=== PATIENT | female | born 1995 | race Caucasian/White ===

== ENCOUNTER 2020-06-20 16:52 | Emergency (ER) | payer SELFPAY ==
[~2020-06-20] VITALS: Ht 162.6 cm; Wt 73.6 kg
[2020-06-20 17:05] VITALS: BP 138/76
[2020-06-20 18:25] LABS: BILIRUBIN,URINE NEGATIVE (NEG); CLARITY,URINE CLEAR; COLOR,URINE YELLOW; NITRITE,URINE NEGATIVE (NEG); PH,URINE 7.5 (<5.0-8.0); PROTEIN,URINE NEGATIVE (NEG-TRACE); UROBILINOGEN,URINE 0.2 mg/dL (0.2 mg/dL)
[2020-06-20 18:41] LABS: BACTERIA,URINE FEW /HPF (0-FEW); RBC,URINE OCC /HPF (0-2)
--- NOTE | 2020-06-20 18:52 | PHYS DOC ---
Past Medical History Past Medical History: Other Additional Past Medical Histor: celiac disease, hypogammaglobulinemia Past Surgical History: Cholecystectomy, Other Additional Past Surgical Histo: LT CTR Smoking Status: Never Smoker Alcohol Use: Occasionally General Adult EDM: Chief Complaint: BACK PAIN - NO INJURY HPI: HPI: Patient is a 25 year old female who presents with chronic lower mid back pain but is now worsened and now she is feeling tightness in her mid back to her lower back. She states it feels like a throbbing type sensation. She states nothing makes it worse or better. She is Tylenol is not helping. She does have peptic ulcer disease. Patient denies abdominal pain, nausea, vomiting, diarrhea, fever, urinary symptoms, chest pain, shortness of air, headache, dizziness, numbness or tingling, focal weakness, vision changes, injury, fall, lifting anything heavy. Patient has a history of celiac disease, hypogammaglobulin, peptic ulcer disease. Review of Systems: Review of Systems: Constitutional: Denies fever or chills. [] Eyes: Denies change in visual acuity. [] HENT: Denies nasal congestion or sore throat. [] Respiratory: Denies cough or shortness of breath. [] Cardiovascular: Denies chest pain or edema. [] GI: Denies abdominal pain, nausea, vomiting, bloody stools or diarrhea. [] : Denies dysuria. [] Musculoskeletal: + Thoracic and lumbar back pain or denies joint pain. [] Integument: Denies rash. [] Neurologic: Denies headache, focal weakness or sensory changes. [] Endocrine: Denies polyuria or polydipsia. [] Lymphatic: Denies swollen glands. [] Psychiatric: Denies depression or anxiety. [] Heart Score: C/O Chest Pain: No Risk Factors: Risk Factors: DM, Current or recent (<one month) smoker, HTN, HLP, family history of CAD, obesity. Risk Scores: Score 0 - 3: 2.5% MACE over next 6 weeks - Discharge Home Score 4 - 6: 20.3% MACE over next 6 weeks - Admit for Clinical Observation Score 7 - 10: 72.7% MACE over next 6 weeks - Early Invasive Strategies Allergies: Allergies: Allergies Coded Allergies Type Severity Reaction Last Updated Verified Sulfa (Sulfonamide Antibiotics) Allergy Severe facial swelling 06/20/20 Yes Influenza Virus Vaccines Allergy Intermediate hives 06/20/20 Yes gluten Allergy Intermediate rash, abdominal discomfort 06/20/20 Yes Physical Exam: PE: Constitutional: Well developed, well nourished, no acute distress, non-toxic appearance. [] HENT: Normocephalic, atraumatic, bilateral external ears normal, oropharynx moist, no oral exudates, nose normal. [] Eyes: PERRLA, EOMI, conjunctiva normal, no discharge. [] Neck: Normal range of motion, no tenderness, supple, no stridor. [] Cardiovascular:Heart rate regular rhythm, no murmur [] Lungs & Thorax: Bilateral breath sounds clear to auscultation [] Abdomen: Bowel sounds normal, soft, no tenderness, no masses, no pulsatile masses. [] Skin: Warm, dry, no erythema, no rash. [] Back: No tenderness, no CVA tenderness. [] Extremities: No tenderness, no cyanosis, no clubbing, ROM intact, no edema. [] Neurologic: Alert and oriented X 3, normal motor function, normal sensory function, no focal deficits noted. [] Psychologic: Affect normal, judgement normal, mood normal. Normal physical exam [] Current Patient Data: Labs: Laboratory Tests Test 06/20/20 17:38 Urine Collection Type Void Urine Color Yellow Urine Clarity Clear Urine pH 7.5 (<5.0-8.0) Urine Specific [place] 1.010 (1.000-1.030) Urine Protein Negative mg/dL (NEG-TRACE) Urine Glucose (UA) Negative mg/dL (NEG) Urine Ketones (Stick) Negative mg/dL (NEG) Urine Blood Negative (NEG) Urine Nitrite Negative (NEG) Urine Bilirubin Negative (NEG) Urine Urobilinogen Dipstick 0.2 mg/dL (0.2 mg/dL) Urine Leukocyte Esterase Small (NEG) Urine RBC Occ /HPF (0-2) Urine WBC 1-4 /HPF (0-4) Urine Squamous Epithelial Cells Many /LPF Urine Transitional Epithelial Cells Few /LPF Urine Bacteria Few /HPF (0-FEW) Urine Mucus Slight /LPF Vital Signs: Vital Signs Date Time Temp Pulse Resp B/P (MAP) Pulse Ox O2 Delivery O2 Flow Rate FiO2 06/20/20 17:05 98.4 92 16 138/76 (96) 99 Room Air 98.4 EKG: EKG: [] Radiology/Procedures: Radiology/Procedures: [] Impression: [facility] [address] [place] [address] IMAGING REPORT Signed PATIENT: GRISELDA PINA ACCOUNT: [id number] : 1995 LOCATION: ER AGE: 25 SEX: F EXAM STATUS: REG ER ORD. PHYSICIAN: FRITZ BRITT APRN REASON: CHRONIC MID BACK PAIN X1 YEAR. RECENTLY GETTING WORSE PROCEDURE: LUMBAR SPINE MIN 4V INDICATION: Reason: CHRONIC MID BACK PAIN X1 YEAR. RECENTLY GETTING WORSE / Spl. Instructions: / History: COMPARISON: None. IMPRESSION: Lumbar spine: 5 views obtained. Moderate stool in the colon. Mild degenerative changes the spine with mild facet hypertrophy and mild spurring at vertebral body endplates. No acute fracture line is seen. Thoracic spine: 3 views obtained. No definite acute fracture or dislocation. Some limitation in the upper thoracic spine on the lateral view secondary to overlap of structures. Electronically signed by: Curt Fernandez MD (06/20/2020 7:25 PM) [id number] DICTATED and SIGNED BY: CURT FERNANDEZ MD DATE: 06/20/20 [id number] 0 Course & Med Decision Making: Course & Med Decision Making Pertinent Labs and Imaging studies reviewed. (See chart for details) See HPI. Alert and oriented x4. Ambulatory with a steady gait. No focal weaknesses. Patient denies any loss of bowel bladder. There is no saddle paresthesia. Speaks in full sentences. Moves all extremities equally with equal strengths. [] Dragon Disclaimer: Dragon Disclaimer: This electronic medical record was generated, in whole or in part, using a voice recognition dictation system. Departure Departure Impression: Primary Impression: Back pain Qualified Codes: M54.9 - Dorsalgia, unspecified; G89.29 - Other chronic pain Disposition: 01 DC HOME SELF CARE/HOMELESS Condition: STABLE Referrals: TAISHA CARMONA (PCP) Patient Instructions: Arthritis, Degenerative-Brief, Back Exercises, Back Injury Prevention, Back Pain, Adult Additional Instructions: Follow-up with your primary care provider as soon as possible. If you start having focal weakness in any extremity, loss of bowel or bladder or numbness and tingling return to the emergency room. Use a heating pad can try [id number] nter lidocaine patches. Scripts Hydrocodone Bit/Acetaminophen (HYDROCODONE-APAP 5-325 ) 1 Tab Tablet 1 TAB PO PRN Q6HRS PRN for PAIN, #10 TAB 0 Refills Prov: FRITZ BRITT APRN 06/20/20 Cyclobenzaprine Hcl (CYCLOBENZAPRINE HCL) 5 Mg Tablet 1 TAB PO TID, #30 TAB Prov: FRITZ BRITT DENTURE PROCESSOR 06/20/20 FRITZ BRITT APRN Jun 20, 2020 18:52
[2020-06-20 19:14] LABS: U PREG PATIENT NEGATIVE (NEG)
--- NOTE | 2020-06-20 19:27 | RAD ---
INDICATION: Reason: CHRONIC MID BACK PAIN X1 YEAR. RECENTLY GETTING WORSE / Spl. Instructions: / His tory: COMPARISON: None. IMPRESSION: Lumbar spine: 5 views obtained. Moderate stool in the colon. Mild degenerative changes the spine with mild facet hypertrophy and mild spurring at vertebral body endplates. No acute fracture line is seen . Thoracic spine: 3 views obtained. No definite acute fracture or dislocation. Some limitation in the u pper thoracic spine on the lateral view secondary to overlap of structures. Electronically signed by: Khalif Teixeira MD (06/20/2020 7:25 PM) [id number]
[2020-06-20] MEDS ORDERED: CYCL5TAB PO (19:35)
[2020-06-20] MEDS ORDERED: HYDR-2761 PO (19:35)
== END 2020-06-20 19:46 | disposition home or self-care (01) ==
LOC: ER 16:52
DX: G89.29 Other chronic pain (principal); M54.5 Low back pain; R20.2 Paresthesia of skin; Z90.49 Acquired absence of other specified parts of digestive tract; Z98.890 Other specified postprocedural states; Z88.2 Allergy status to sulfonamides; Z88.7 Allergy status to serum and vaccine; Z88.8 Allergy status to other drugs, medicaments and biological substances
CPT/HCPCS: 72072; 72110; 81001; 81025; 87086; 99285